=== PATIENT | female | born 1990 | race Caucasian/White ===

== ENCOUNTER → 2016-06-24 | Outpatient (CLI) | payer BC ==
[~2016-06-24] MED LIST: CABE0.5T PO; NORE1DIS7 TD; ONDA4TAB10 SL; SULF800T23 PO
[2016-06-24 10:34] LABS: PREG INTERNAL NEGATIVE QC NEG CLEAR BACKGROUND; PREG INTERNAL POSITIVE QC POS CONTROL LINE
[2016-06-24 10:36] LABS: PROLACTIN 120.43 ng/mL
[2016-06-24 10:37] LABS: CALCULATED INSULIN SENSITIVITY 0.38; GLUCOSE LOG 1.8808; INSULIN FASTING 5.6 mU/L (3-25); INSULIN LOG 0.7482
[2016-06-24 10:49] LABS: THYROID STIMULATING HORMONE 1.46 uIu/ml (0.300-4.500)
== END | disposition home or self-care (01) ==
LOC: C.LAB1850 08:33
PROVIDERS: ATTEND Physician Assistant
DX: N91.1 Secondary amenorrhea (principal)

== ENCOUNTER → 2016-07-04 | Outpatient (CLI) | payer BC | END | disposition home or self-care (01) | LOC: C.PAPS 11:45 | PROVIDERS: ATTEND Obstetrics & Gynecology | DX: Z01.419 Encounter for gynecological examination (general) (routine) without abnormal findings (principal) ==

== ENCOUNTER → 2016-07-04 | Outpatient (CLI) | payer BC | END | disposition home or self-care (01) | LOC: C.LAB1850 08:04 | PROVIDERS: ATTEND Obstetrics & Gynecology | DX: E22.9 Hyperfunction of pituitary gland, unspecified (principal) ==

== ENCOUNTER → 2016-07-07 | Outpatient (CLI) | payer BC ==
[~2016-07-07] MED LIST changes: +GADAVIST IV PRN
--- NOTE | 2016-07-07 11:15 | DIAGNOSTIC IMAGING REPORT ---
MRI THE BRAIN AND PITUITARY WITHOUT AND WITH CONTRAST CLINICAL HISTORY: Secondary amenorrhea. Elevated prolactin level. COMPARISON STUDY: No previous studies for comparison. FINDINGS: Axial diffusion-weighted images reveal no evidence of acute or subacute infarction. The ventricular system has a normal size and configuration for age. Proton density, T2-weighted, and FLAIR images reveal no significant intraparenchymal signal abnormalities. There is subtle diminished enhancement involving the right lateral aspect of the pituitary gland. In the proper clinical setting, this is indicative of a small microadenoma. The pituitary gland is of normal overall size. The infundibulum is within the midline. No optic chiasmatic abnormalities are visualized. With the exception of the pituitary, postcontrast images reveal no pathologically enhancing lesions. IMPRESSION: 1. Subtle focus of diminished enhancement involving the right lateral aspect of the pituitary measuring approximately 5 mm. In the proper biochemical and clinical setting, this is indicative of a small microadenoma 2. Otherwise normal MRI the brain Electronically signed by: Silvano Dent M.D. 07/07/2016 11:14 AM Dictated Date/Time: 07/07/2016 11:07 AM
== END | disposition home or self-care (01) ==
LOC: C.MRI 09:43
PROVIDERS: ATTEND Obstetrics & Gynecology
DX: E22.9 Hyperfunction of pituitary gland, unspecified (principal); N91.1 Secondary amenorrhea

== ENCOUNTER → 2016-07-21 | Outpatient (CLI) | payer BC ==
[~2016-07-21] MED LIST changes: -GADAVIST IV PRN
[2016-07-21 23:12] LABS: PREG INTERNAL NEGATIVE QC NEG CLEAR BACKGROUND; PREG INTERNAL POSITIVE QC POS CONTROL LINE
== END | disposition home or self-care (01) ==
LOC: C.LAB1850 16:58
PROVIDERS: ATTEND Obstetrics & Gynecology
DX: N91.1 Secondary amenorrhea (principal); Z30.9 Encounter for contraceptive management, unspecified

== ENCOUNTER 2016-07-25 18:17 | Emergency (ER) | payer BC ==
[~2016-07-25] VITALS: Ht 160 cm; Wt 56.9 kg
[2016-07-25 18:48] VITALS: TEMP 36.8; Ht 160 cm; Wt 56.9 kg
[2016-07-25] MEDS ORDERED: SODIUM CHLORIDE 0.9% 1000ML 1,000 ML IV STA (20:33)
[2016-07-25] MEDS ORDERED: ONDANSETRON INJ 2 MG/ML 2 ML VIAL IV STA (20:33)
[2016-07-25] MEDS ORDERED: NORE1DIS7 TD (20:44)
[2016-07-25] MEDS ORDERED: CABE0.5T PO (20:46)
[2016-07-25 21:55] LABS: BASO % 0.2 %; BASO ABS # 0.02 K/uL (0-0.2); COMPLETE YES; EOS % 0.7 %; HEMATOCRIT 40.3 % (37-47); IG% 0.1 %; LYMPH % 13.7 %; LYMPH ABS # 1.26 K/uL (1.2-3.4); MEAN CELL VOLUME 87.6 fL (80-100); MEAN CORPUSCULAR HEMOGLOBIN 30.9 pg (25-34); MEAN CORPUSCULAR HGB CONC 35.2 g/dl (32-36); MEAN PLATELET VOLUME 10.1 fL (7.4-10.4); MONO % 2.5 %; NEUT % 82.8 %; PLATELET COUNT 302 K/uL (130-400)
[2016-07-25] MEDS ORDERED: KETOROLAC TROMETHAMINE 15 MG/ML VIAL IV STA (21:58)
[2016-07-25 22:01] LABS: URINE APPEARANCE CLEAR (CLEAR); URINE BILIRUBIN NEG (NEG); URINE COLOR YELLOW; URINE EPITHELIAL CELL AUTO >30 /lpf (0-5); URINE NITRITE NEG (NEG); URINE PH >= 9.0 (4.5-7.5); URINE SPECIFIC GRAVITY 1.023 (1.000-1.030); UROBILINOGEN NEG (NEG); ZZUR CULT IF INDIC CLEAN CATCH YES
[2016-07-25 22:06] LABS: MANUAL MICROSCOPIC REQUIRED? NO; REVIEW REQ? YES; SULFASALICYLIC ACID NEG (NEG)
[2016-07-25 22:06] LABS: BUN/CREATININE RATIO 16.2 (10-20); CALCIUM 9.2 mg/dl (8.5-10.1); CREATININE 0.79 mg/dl (0.60-1.20); MAGNESIUM 2.1 mg/dl (1.8-2.4); POTASSIUM 4.1 mmol/L (3.5-5.1)
[2016-07-25 22:13] LABS: ALB/GLOB RATIO 1.2 (0.9-2)
--- NOTE | 2016-07-25 22:13 | EMERGENCY ROOM VISIT NOTE ---
History First contact with patient: 20:19 Chief Complaint: FLU LIKE SX Stated Complaint: VOMITING, HEADACHE, NAUSEA, CAN'T STAND STRAIGHT History of Present Illness The patient is a 25 year old female who presents to the Emergency Room via private vehicle with complaints of "vomiting, headache, nausea, can't stand straight". Patient states that she was recently diagnosed with a prolactinoma by MRI, that was ordered by a [facility] claims processor. Patient states that she was prescribed Cabergoline and Xulane recently. She states that she has taken 3 total doses of the Cabergoline, and each time it is made her nauseous. She states that the last dose of this medication was yesterday. She notes that she also started a new control patch last night which is called Xulane. She notes that this morning she began with vomiting, nausea around 10 AM and then noticed epigastric abdominal pain of which she rates as a 9/10. She notes that she has vomited every hour since 10 AM. She feels that she cannot stand straight because of the epigastric abdominal pain. She is unable to keep down any fluids or food and notes that she just vomits them back up. Then around 2 PM she developed a headache in the occipital region that she rates as a 6/10 and notes that she does frequently get headaches and this is the typical location. She notes this is not the worse headache of her life. She denies any urinary symptoms, hematemesis. Her last bowel movement was this morning which was normal for her. She denies any back pain or flank pain. There is no chest pain or shortness of breath. Review of Systems A complete 10-point Review of Systems was discussed with the patient, with pertinent positives and negatives listed in the History of Present Illness. All remaining Review of Systems questions can be considered negative unless otherwise specified. Past Medical/Surgical History Achilles tendon repair, prolactinoma, Mnire's disease Family History Diabetes, high blood pressure, cancer Social History Smoking Status: Never Smoker Social History: Patient lives with roommate, admits to social alcohol consumption and denies tobacco. Current/Historical Medications Scheduled Cabergoline (Cabergoline), 0.5 MG PO 2XWK Norelgestromin-Ethinyl Estradi (Xulane 150-35 Mcg/24Hr), 1 PATCH TD CONTINOUS Ondasetron Odt (Zofran Odt), 4 MG SL Q6H Sulfa/Trimethoprim (Bactrim Ds 800MG/160MG), 1 TAB PO BID Allergies Coded Allergies: Codeine (Verified Allergy, Mild, RASH, 07/25/16) Physical Exam Vital Signs Date Time Temp Pulse Resp B/P Pulse Ox O2 Delivery O2 Flow Rate FiO2 07/25/16 23:18 66 20 94/39 98 Room Air 07/25/16 22:26 61 18 95/46 99 Room Air 07/25/16 18:48 36.8 92 18 113/58 98 Room Air Physical Exam VITAL SIGNS - Vital signs and nursing notes were reviewed. Patient is afebrile , normotensive, non-tachycardic and is saturating well on room air at 98%. GENERAL - 25-year-old female appearing her stated age who is in no acute distress. Communicates well with provider and answers questions appropriately. SKIN - Without rashes. No petechial rashes. HEAD - NC/AT. EYES - PERRL with EOMI bilaterally. Sclera anicteric. Palpebral conjunctiva pink and moist with no injection noted. EARS - No deformities of external structures noted on gross examination bilaterally. NOSE - Midline and without cyanosis. No epistaxis or purulent drainage noted. Septum midline without deviation or septal hematoma noted. MOUTH/OROPHARYNX - Without perioral cyanosis. Buccal mucosa pink and moist and without leukoplakia. Tongue midline with equal elevation of palate bilaterally. No tonsillar hypertrophy, erythema, or exudates noted. Good dentition noted. NECK - Neck with FROM. Supple to palpation. No lymphadenopathy noted. No nuchal rigidity. No Meningismus or signs of encephalitis. LUNGS - Chest wall symmetric without accessory muscle use, intercostals retractions, or central cyanosis. Normal vesicular breath sounds CTA B/L. No wheezes, rales, or rhonchi appreciated. CARDIAC - RRR with S1/S2. No murmur, rubs, or gallops appreciated. ABDOMEN - Abdominal contour without pulsations or visible masses. BS normoactive all four quadrants. There is tenderness in the epigastric region. There is no tenderness in the right upper, left upper or lower quadrants. No palpable masses, hepatosplenomegaly, or ascites noted. EXTREMITIES - No clubbing or peripheral cyanosis. No pretibial edema present. Vascularly intact in the extremities. +5/5 strength noted in UE/LE bilaterally. NEUROLOGIC - Cranial nerves II through XII grossly intact. Sensory intact to light touch throughout. PSYCH - A&Ox3 and cooperates fully with examiner. Medical Decision & Procedures ER Provider Diagnostic Interpretation: ABDOMEN 2VIEW W/PA CHEST RTN CLINICAL HISTORY: Epigastric abdominal pain pain COMPARISON STUDY: No previous studies for comparison. FINDINGS: The soft tissues, psoas shadows, renal outlines and intestinal gas pattern appear normal. There is no evidence for bowel obstruction. There is no evidence for free intraperitoneal air. No abnormal abdominal calcifications are seen. A frontal view of the chest was performed and is unremarkable. IMPRESSION: Normal study. Electronically signed by: Daniel Duff M.D. 07/25/2016 10:29 PM Dictated Date/Time: 07/25/2016 10:29 PM Laboratory Results 07/25/16 21:17 Red Blood Count 4.60, Mean Corpuscular Volume 87.6, Mean Corpuscular Hemoglobin 30.9, Mean Corpuscular Hemoglobin Concent 35.2, Mean Platelet Volume 10.1, Neutrophils (%) (Auto) 82.8, Lymphocytes (%) (Auto) 13.7, Monocytes (%) (Auto) 2.5, Eosinophils (%) (Auto) 0.7, Basophils (%) (Auto) 0.2, Neutrophils # (Auto) 7.62, Lymphocytes # (Auto) 1.26, Monocytes # (Auto) 0.23, Eosinophils # (Auto) 0.06, Basophils # (Auto) 0.02 07/25/16 21:17 Test 07/25/16 19:40 07/25/16 20:33 07/25/16 21:17 07/25/16 21:33 Urine Color YELLOW Urine Appearance CLEAR (CLEAR) Urine pH >= 9.0 (4.5-7.5) Urine Specific [place] 1.023 (1.000-1.030) Urine Protein NEG (NEG) Urine Glucose (UA) NEG (NEG) Urine Ketones 1+ (NEG) Urine Occult Blood NEG (NEG) Urine Nitrite NEG (NEG) Urine Bilirubin NEG (NEG) Urine Urobilinogen NEG (NEG) Urine Leukocyte Esterase TRACE (NEG) Urine WBC (Auto) 5-10 /hpf (0-5) Urine RBC (Auto) 0-4 /hpf (0-4) Urine Hyaline Casts (Auto) 5-10 /lpf (0-5) Urine Epithelial Cells (Auto) >30 /lpf (0-5) Urine Bacteria (Auto) 2+ (NEG) Urine Renal Epithelial Cells 5-10 /lpf (0-5) White Blood Count 9.20 K/uL (4.8-10.8) Red Blood Count 4.60 M/uL (4.2-5.4) Hemoglobin 14.2 g/dL (12.0-16.0) Hematocrit 40.3 % (37-47) Mean Corpuscular Volume 87.6 fL (80-100) Mean Corpuscular Hemoglobin 30.9 pg (25-34) Mean Corpuscular Hemoglobin Concent 35.2 g/dl (32-36) Platelet Count 302 K/uL (130-400) Mean Platelet Volume 10.1 fL (7.4-10.4) Neutrophils (%) (Auto) 82.8 % Lymphocytes (%) (Auto) 13.7 % Monocytes (%) (Auto) 2.5 % Eosinophils (%) (Auto) 0.7 % Basophils (%) (Auto) 0.2 % Neutrophils # (Auto) 7.62 K/uL (1.4-6.5) Lymphocytes # (Auto) 1.26 K/uL (1.2-3.4) Monocytes # (Auto) 0.23 K/uL (0.11-0.59) Eosinophils # (Auto) 0.06 K/uL (0-0.5) Basophils # (Auto) 0.02 K/uL (0-0.2) RDW Standard Deviation 37.5 fL (36.4-46.3) RDW Coefficient of Variation 11.8 % (11.5-14.5) Immature Granulocyte % (Auto) 0.1 % Immature Granulocyte # (Auto) 0.01 K/uL (0.00-0.02) Anion Gap 10.0 mmol/L (3-11) Est Creatinine Clear Calc Drug Dose 88.5 ml/min Estimated GFR () 118.9 Estimated GFR (Non- 102.6 BUN/Creatinine Ratio 16.2 (10-20) Calcium Level 9.2 mg/dl (8.5-10.1) Magnesium Level 2.1 mg/dl (1.8-2.4) Total Bilirubin 0.5 mg/dl (0.2-1) Aspartate Amino Transf (AST/SGOT) 24 U/L (15-37) Alanine Aminotransferase (ALT/SGPT) 33 U/L (12-78) Alkaline Phosphatase 45 U/L (45-117) Total Creatine Kinase 245 U/L (26-192) Creatine Kinase MB 2.3 ng/ml (0.5-3.6) Total Protein 7.7 gm/dl (6.4-8.2) Albumin 4.2 gm/dl (3.4-5.0) Globulin 3.5 gm/dl (2.5-4.0) Albumin/Globulin Ratio 1.2 (0.9-2) Amylase Level 55 U/L (25-115) Lipase 210 U/L (73-393) Bedside Troponin I 0.000 ng/ml (0-0.045) Test 07/25/16 21:50 07/25/16 22:21 Influenza Type A (RT-PCR) Neg for Influ A (NEG) Influenza Type A Antigen Neg for Influ A (NEG) Influenza Type B Antigen Neg for Influ B (NEG) Influenza Type B (RT-PCR) Neg for Influ B (NEG) Creatine Kinase MB Ratio (0-3.0) Medications Administered Medications (Trade) Dose Ordered Sig/Ortiz Route Start Time Stop Time Status Last Admin Dose Admin Sodium Chloride (Nss 1000ml) 1,000 ml @ 999 mls/hr Q1H1M STAT IV 07/25/16 20:33 07/25/16 21:33 DC 07/25/16 21:25 999 MLS/HR Ondansetron HCl (Zofran Inj) 4 mg NOW STAT IV 07/25/16 20:33 07/25/16 20:37 DC 07/25/16 21:25 4 MG Ketorolac Tromethamine (Toradol Inj) 30 mg STK-MED ONCE .ROUTE 07/25/16 22:20 07/25/16 22:23 DC 07/25/16 22:24 15 MG Ceftriaxone Sodium (Rocephin Inj) 1 gm NOW STAT IV 07/25/16 22:57 07/25/16 22:59 DC 07/25/16 23:16 1 GM Ondansetron HCl (ZOFRAN ODT 4MG Home Pack) 1 homepack UD STAT PO 07/25/16 22:59 07/25/16 23:00 DC 07/25/16 23:17 1 [facility] Medical Decision Is important to note that the patient checked into the emergency department at 1816. There was a large volume of patients in the emergency department therefore there was a lengthy wait time unfortunately. Patient was then placed in room C7, and I promptly signed up for the patient. I signed up for the patient at 2018. Patient was then promptly evaluated. Patient was seen and evaluated as above. Patient's vital signs are stable. She is afebrile, nontachycardic, normotensive and is saturating well on room air 98%. I placed the initial order for saline lock at 2035. There was a total of 17 minutes from the time that I signed up for the patient, performed a complete history, physical examination, and returned to start the orders. After obtaining a thorough history and physical examination IV access was established and a CBC, CMP, magnesium, influenza screen, point care troponin, stat EKG, abdomen 2 view with PA chest, UA clean catch culture if indicated, point care urine secondary to subjective and objective examination findings. The patient notes that she has been vomiting since 10 AM therefore she was hydrated with 1 L of normal saline, and requested something for nausea therefore provided her with 4 mg of Zofran IV. She declined the EKG, noting that she had just had one. Clinical she appears well, and converses well. I then elected to order an amylase, lipase, CPK and CK-MB. She initially did not want anything for pain but upon reevaluation noted that she would like something therefore she was given 15 mg of Toradol IV. Upon reevaluation she noted to be feeling less nauseous, with decrease in her abdominal pain. The headache was persistent. A discussion about imaging was discussed with the patient and it was decided to start with a chest x-ray and abdominal x-ray. Results of this as above. I agree with the radiologists findings this was a normal study. A thorough discussion was had regarding a head CT as well as one of the abdomen and pelvis. Patient declined the head CT and Abdomen and Pelvis CT at 2236. The patient was reassessed numerous times throughout her stay and during one of the initial reassessments the father noted that he was not happy. He states that it has taken nearly 3 hours to get his daughters IV started, and she is in pain. I apologized many times and stated that we are working as fast as we can we are experiencing a high influx of individuals into the emergency department and again are working as fast as we can. He noted that he had seen people in the waiting room just as sick as his daughter be brought back before his daughter. I again stated to him that I'm very sorry but we are working as fast as we are able to. The daughter then asked if I could just send her home with pain medication and antinausea medication and inform her upon the labs results and bring her back to the emergency department with any pertinent findings. I stated that I am not sure of the cause and at this point did not have the lab work back and informed her that I did not feel comfortable discharging her at this time as I had not ruled out emergent causes however noted that I could not keep her here, and that if she wished to leave that she may. The patient agreed to stay until the results of her lab work returned. The patient's CBC reveals no leukocytosis or anemia. There was electrolyte abnormality. Liver function tests were normal. Total CK was elevated at 245. She was hydrated with 1 L of normal saline and educated upon this finding to have her this repeated with her family doctor, and to consume a clear liquid diet for the next 48 hours. Point care troponin was 0. Pancreatic enzymes to include amylase and lipase were within normal limits. The patient's urine although contaminated with greater than 30 epithelial cells, did have trace leukocyte esterase, 5-10 white blood cells, 2+ urine bacteria and 5-10 renal epithelial cells. I did discuss the case with my attending and the decision was made to treat her with 1 g of Rocephin here for a UTI as well as by mouth antibiotics such as Bactrim. I do believe this is reasonable. The flu swab returned a negative result. Flu PCR pending. Point of care urine was negative. I believe the patient is most likely experiencing symptoms secondary to the new medication that she was prescribed. She'll have any trouble breathing or signs of allergic reaction however did note that this is only the third time she has taken medication, and she did have nausea previously. In addition, she did begin a contraceptive patch. I believe that in combination with these the patient is most likely experiencing nausea which results in vomiting and therefore epigastric pain from the constant tightening of the abdominal muscles. I do not suspect any emergent intra-abdominal process. There was no free air on the radiograph, there is no leukocytosis or anemia. No evidence of pancreatitis. Patient was offered a CT scan of the abdomen and pelvis respectfully declined. Patient noted that she would like to go home and after the infusion of the 1 g of Rocephin for the UA results. A po fluid trial was initiated and the patient successfully was able to tolerate water. She did not want to trevizo into trying crackers which I do believe is reasonable. I thoroughly educated the patient and father upon today's findings , as well as management. The patient is to call her family doctor first thing tomorrow morning regarding today's visit for repeat of CPK and reevaluation. She is also to call her dental claims processor first thing tomorrow to request follow- up as soon as possible regarding the potential adverse reaction to the medications. The patient notes she only takes medications twice a week. I do believe it is reasonable to have the patient follow-up in the outpatient setting regarding this. She is to return with any worsening of her symptoms. When the medication was nearly finished infusing, I indicated that I be back to reevaluate just prior to departure. After a few minutes had passed, I went to reevaluate and the patient had been discharged and left the emergency department. I do believe the patient is stable for discharge. The patient prior to was educated upon today's findings, had questions answered prior to discharge and was discharged home in good condition. She was educated upon today's findings and management. I apologized many times for the wait. For the UTI she was treated here with 1 g of Rocephin, and will be prescribed Bactrim DS one tab twice a day 5 days. She requested something for nausea, therefore I believe it is reasonable to prescribe her Zofran 4 mg ODT every 6, disp 16 tablets. Prior to discharge the patient was noted to be hypotensive. I did discuss this with the nurse, and he indicated that he spoke with the patient when the blood pressure was obtained and asked if it was typically this low. He indicates, that the patient and father both noted that this is normal for her. Please refer to his documentation regarding this discussion. In the evaluation and treatment of this patient the following differential diagnoses were entertained: Pancreatitis, adverse medication reaction, meningitis, encephalitis, acute intracranial abnormality, [place], cardiac abnormalities, electrolyte imbalance, , influenza, pneumonia, acute intra-abdominal process, cholecystitis, among others. Impression Primary Impression: Vomiting Additional Impressions: UTI (urinary tract infection) Elevated CPK Nausea Epigastric abdominal pain Departure Information Dispostion Home / Self-Care Condition GOOD Prescriptions Ondasetron Odt (ZOFRAN ODT) 4 Mg Tab 4 MG SL Q6H for Nausea, #16 TAB Prov: Gavin Calix PA-C 07/25/16 Sulfa/Trimethoprim (Bactrim Ds 800MG/160MG) Tab 1 TAB PO BID for 5 Days, #10 TAB Prov: Gavin Calix PA-C 07/25/16 Referrals Gurwinder Daly M.D. (PCP) Patient Instructions My [facility] Additional Instructions You have been treated in the Emergency Department for vomiting, nausea, headache , epigastric abdominal pain. You have been prescribed Bactrim to be taken twice daily for 5 days. This is an antibiotic. All antibiotics have the potential to cause diarrhea. Stop this medication and contact a medical provider if you were to develop any significant adverse side effects including: wheezing, shortness of breath, passing out, vomiting, or a diffuse rash. Always take antibiotics as directed and COMPLETE the ENTIRE course regardless of the improvement of your symptoms. You've also been prescribed Zofran. This is an antinausea medication. This is one tablet every 6 hours as needed for nausea. Please call your family doctor first thing tomorrow morning to schedule follow- up regarding today's visit. Your total CK was elevated today at 245. As we discussed please consume a clear liquid diet for the next 48 hours, and have this value repeated with your family doctor to ensure that it returns to normal. Please stay well hydrated and drink plenty of water and Gatorade. Please call your dental claims processor first thing tomorrow morning to discuss the medication that you've been prescribed (Cabergoline and Xulane), and please inform them upon your symptoms. For pain control, you can use the following [id number] medicines (if >12 yo): - Regular strength (325mg/tab) Tylenol (acetaminophen) 2 tabs every 4-6 hours as needed. Do not exceed 12 tablets in a 24 hour period. Avoid taking more than 4 grams (4000 mg) of Tylenol per day. This includes any other sources of acetaminophen you may take on a regular basis. - Regular strength (200 mg/tab) Advil (ibuprofen) 1-2 tabs every 4-6 hours as needed. Do not exceed a dose of 3200 mg per day. Return to the emergency department if your symptoms worsen despite treatment course outlined above. Drink plenty of water and stay well hydrated. Return to the emergency department if your symptoms persist despite treatment plan outlined above or if the following symptoms occur: increased fevers, chills , low back pain, continued nausea/vomiting, blood in your urine, or any worsening of your symptoms. Problem Qualifiers Primary Impression: Vomiting Vomiting type: unspecified Vomiting Intractability: non-intractable Nausea presence: with nausea Qualified Codes: R11.2 - Nausea with vomiting, unspecified Additional Impressions: UTI (urinary tract infection) Urinary tract infection type: acute cystitis Hematuria presence: without hematuria Qualified Codes: N30.00 - Acute cystitis without hematuria
[2016-07-25] MEDS ORDERED: KETOROLAC TROMETHAMINE 30 MG/ML VIAL ONE (22:20)
--- NOTE | 2016-07-25 22:31 | DIAGNOSTIC IMAGING REPORT ---
ABDOMEN 2VIEW W/PA CHEST RTN CLINICAL HISTORY: Epigastric abdominal pain pain COMPARISON STUDY: No previous studies for comparison. FINDINGS: The soft tissues, psoas shadows, renal outlines and intestinal gas pattern appear normal. There is no evidence for bowel obstruction. There is no evidence for free intraperitoneal air. No abnormal abdominal calcifications are seen. A frontal view of the chest was performed and is unremarkable. IMPRESSION: Normal study. Electronically signed by: Daniel uDff M.D. 07/25/2016 10:29 PM Dictated Date/Time: 07/25/2016 10:29 PM
[2016-07-25 22:42] LABS: CKMB/CK RATIO 0.9 (0-3.0)
[2016-07-25] MEDS ORDERED: CEFTRIAXONE SOD INJ 1 GM ADDVIAL IV STA (22:57)
[2016-07-25] MEDS ORDERED: ONDANSETRON HOME PACK 4MG OD TAB PO STA (22:59)
[2016-07-25] MEDS ORDERED: SULF800T23 PO (23:03)
[2016-07-25] MEDS ORDERED: ONDA4TAB10 SL (23:03)
[2016-07-25 23:18] VITALS: BP 94/39; PULSE 66; O2SAT 98
[2016-07-26 00:22] LABS: INFLUENZA A PCR Neg for Influ A (NEG); INFLUENZA B PCR Neg for Influ B (NEG)
== END 2016-07-25 23:46 | disposition home or self-care (01) ==
LOC: C.EDB 18:19 → C.EDC 23:46
DX: R11.2 Nausea with vomiting, unspecified (principal); N30.00 Acute cystitis without hematuria; R74.8 Abnormal levels of other serum enzymes; R10.13 Epigastric pain

== ENCOUNTER → 2016-09-09 | Outpatient (CLI) | payer BC ==
[~2016-09-09] MED LIST changes: -SULF800T23 PO
[2016-09-09 09:37] LABS: PREG INTERNAL NEGATIVE QC NEG CLEAR BACKGROUND; PREG INTERNAL POSITIVE QC POS CONTROL LINE
[2016-09-09 09:50] LABS: HEMATOCRIT 39.8 % (37-47); MEAN CORPUSCULAR HGB CONC 34.9 g/dl (32-36); MEAN PLATELET VOLUME 10.2 fL (7.4-10.4); PLATELET COUNT 286 K/uL (130-400); RED BLOOD COUNT 4.63 M/uL (4.2-5.4); WHITE BLOOD COUNT 5.39 K/uL (4.8-10.8)
[2016-09-09 10:03] LABS: ALT/SGPT 35 U/L (12-78); BLOOD UREA NITROGEN 11 mg/dl (7-18); BUN/CREATININE RATIO 13.5 (10-20); CALCIUM 8.7 mg/dl (8.5-10.1); CARBON DIOXIDE 28 mmol/L (21-32); CHLORIDE 103 mmol/L (98-107); GLUCOSE 75 mg/dl (70-99); MAGNESIUM 1.8 mg/dl (1.8-2.4); POTASSIUM 4.1 mmol/L (3.5-5.1); SODIUM 138 mmol/L (136-145)
[2016-09-09 10:12] LABS: ALKALINE PHOSPHATASE 34 U/L (45-117); AST/SGOT 20 U/L (15-37); PHOSPHORUS 2.6 mg/dl (2.5-4.9)
[2016-09-13 15:30] LABS: ILGF1 Z SCORE FEMALE -0.2 SD (-2.0 - +2.0); INSULIN LIKE GROWTH FACTOR-I 151 ng/mL (63-373)
== END | disposition home or self-care (01) ==
LOC: C.LAB1850 07:59
PROVIDERS: ATTEND Internal Medicine Endocrinology, Diabetes & Metabolism
DX: D35.2 Benign neoplasm of pituitary gland (principal)

== ENCOUNTER → 2017-01-20 | Outpatient (CLI) | payer BC | END | disposition home or self-care (01) | LOC: C.LABBFT 13:13 | PROVIDERS: ATTEND Internal Medicine | DX: J02.9 Acute pharyngitis, unspecified (principal) ==